=== PATIENT | male | born 1935 | race Caucasian/White ===

== ENCOUNTER 2018-01-06 11:36 | Emergency (ER) | payer MEDICARE, SELFPAY ==
[2018-01-06 11:37] VITALS: BP 148/111; PULSE 99; RESP 18; TEMP 36.6; O2SAT 98; BMI 22.6
[2018-01-06 12:37] LABS: Hematocrit 38.7 % (40-54); Hemoglobin 12.6 g/dl (13.0-16.5); Mean Corp Hgb Conc 32.6 g/gl (32-36); Mean Corpuscular Hgb 30.9 pg (27.0-32.0); Mean Corpuscular Volume 94.9 fL (80-94); Mean Platelet Vol. 9.9 fl (6.2-12.0); Platelet Count 189 K/mm3 (150-450); RBC Distribution Width CV 13.8 % (11.6-14.6); RBC Distribution Width SD 47.7 fl (35.1-43.9); Red Blood Count 4.08 M/mm3 (4.6-6.2); White Blood Count 5.5 K/mm3 (4.4-11.0)
[2018-01-06 12:38] LABS: Scan Indicated on CBC? Y/N NO
[2018-01-06 12:42] LABS: International Normalized Ratio 1.1; Prothrombin Time (Protime)PT. 14.5 SECONDS (11.7-14.9)
[2018-01-06 12:48] LABS: Anion Gap 8 (5-15); BUN 14 mg/dL (7-18); BUN/Creat Ratio 15.1 RATIO (10-20); Calcium,Total 8.7 mg/dL (8.5-10.1); Chloride 106 mmol/L (98-107); Creatinine, Serum 0.93 mg/dL (0.70-1.30); EST Glomerular Filtration Rate 83 mL/min (>60); Est Glom Filt Rate - Afr Amer 101 mL/min (>60); Estimated Creatinine Clearance 62.28 ml/min; Glucose 86 mg/dL (74-106); Sodium Level 142 mmol/L (136-145)
[2018-01-06 13:05] LABS: Mucous, Urine 0 SEEN /hpf (<or=2+)
[2018-01-06 13:07] LABS: Color, Urine Amber (Yellow); Glucose, Dipstick Normal (Normal); Ketone-Dipstick Negative (Negative); Leukocyte Esterase-Dipstick 500 /ul (Negative); Nitrite-Dipstick Positive (Negative); Occult Blood-Urine 250 /ul (Negative); Protein-Dipstick 30 mg/dl (Negative); Urine Bilirubin Dipstick Negative (Negative); Urine Clarity Cloudy (Clear); Urine Urobilinogen Normal (Normal)
[2018-01-06 13:14] LABS: Bacteria 3+ /hpf (None Seen); Red Blood Cells-Urine 25-50 SEEN /hpf (0-5); Squamous Epithelial Cells - UA 0-5 SEEN /hpf (0-5); White Blood Cells 10-25 SEEN /hpf (0-5)
--- NOTE | 2018-01-06 13:32 | ED.VISSUMM ---
- ER Visit Summary Date of Service: 01/06/18 Chief Complaint: Blood in urine History of Present Illness: The patient is a 82 M with an indwelling Barnes catheter which she states was placed for retention. He has noticed blood in the Barnes bag for the past 3 weeks. No back pain or fever. He has noticed occasional small clots. He is on Eliquis. Physical Examination: He is not in distress. No fever. Abdomen is soft. The urine is somewhat blood-tinged in the Barnes bag but there are no clots in it is still flowing well. Test Results: Hemoglobin and creatinine are normal here. He does have blood in his urine and nitrites. Difficult to say if it is just colonization or if this represents an infection but to be safe I did send it for culture and started him on an oral antibiotic. His Barnes bag was changed here and his Barnes is flowing well. There is no evidence of obstruction. No clots. When the bag was changed, the urine was fairly clear. Emergency Department Course and Treatment: No evidence of significant bleeding at this time. Urine was sent for culture and he was started on antibiotic. He will follow up closely with his urologist in [place] and alk with his press manager regarding whether or not he should continue his anticoagulants. Treatment Plan: Follow-up with urology Disposition: Home stable Impression: Initial encounter hematuria, UTI This note was generated with [employer] dictation software. It may contain incorrect words, spelling, and punctuation that were not noted in review of the chart prior to signing ED Disposition - Plan for ED Patient: Chief Complaint: Complaint Instructions: ED UTI Cystitis Male, ED Hematuria Prescriptions: Ciprofloxacin [Cipro] 500 mg PO BID #14 tablet Additional Instructions: Followup with your urologist in [place] as soon as possible
--- NOTE | 2018-01-06 13:53 | NURSING ---
CALLED [facility] FOR TRANSPORT.
[2018-01-06 14:15] VITALS: BP 147/81; PULSE 90; RESP 18; O2SAT 97
[2018-01-06 14:17] VITALS: BP 147/81; PULSE 87; RESP 18; O2SAT 98
--- NOTE | 2018-01-06 14:19 | ED.RN ---
CALLED REPORT TO [facility], SPOKE WITH JUANCHO. UPDATED THEM ON TESTING, CURRENT DX AND NEW MEDICATIONS. DENIES QUESTIONS. GAVE ETA OF 1-1.5 HOURS.
[2018-01-06] MEDS: Ciprofloxacin 500 MG Tablet PO (14:28)
--- NOTE | 2018-01-06 15:04 | NURSING ---
BEDSIDE REPORT GIVEN TO [facility]. PT LEFT ON THEIR COT BACK TO [facility].
== END 2018-01-06 15:05 | disposition home or self-care (01) ==
PROVIDERS: Emergency Provider Emergency Medicine; Family Provider Internal Medicine Nephrology; PCP Internal Medicine Nephrology
DX: N39.0 Urinary tract infection, site not specified (principal); R31.9 Hematuria, unspecified; I10 Essential (primary) hypertension; I48.91 Unspecified atrial fibrillation; N40.0 Benign prostatic hyperplasia without lower urinary tract symptoms; Z79.02 Long term (current) use of antithrombotics/antiplatelets; Z79.82 Long term (current) use of aspirin; Z79.899 Other long term (current) drug therapy
CPT/HCPCS: 80048; 81001; 85027; 85610; 87086; 87088; 87186; 99284; A4216

== ENCOUNTER 2018-05-08 10:21 | Emergency (ER) | payer MEDICARE, SELFPAY ==
[2018-05-08 10:25] VITALS: BP 117/73; PULSE 75; PULSE 77; RESP 18; TEMP 36.7; O2SAT 93; O2SAT 95; BMI 22.8
--- NOTE | 2018-05-08 10:27 | EKG12_ITS ---
Test Reason : SYNCOPE Blood Pressure : / mmHG Vent. Rate : 078 BPM Atrial Rate : 039 BPM P-R Int : 000 ms QRS Dur : 106 ms QT Int : 444 ms P-R-T Axes : 000 007 255 degrees QTc Int : 506 ms Atrial fibrillation with occasional PVCs Incomplete left bundle branch block ST & Marked T wave abnormality, consider anterolateral ischemia ST & T wave abnormality, consider inferior ischemia Prolonged QT Abnormal ECG Confirmed by MIR SMITH, LINDA ([id number]), video effects editor XENA FERGUSON ([id number]) on 05/15/2018 11:17:13 AM Referred By: NATALIE Confirmed By:LINDA HESTER MD
--- NOTE | 2018-05-08 10:27 | RAD_ITS ---
STUDY: X-RAY CHEST REASON FOR EXAM: Male, 82 years old. Chest pain TECHNIQUE: Portable upright chest COMPARISON: None. FINDINGS: Left pectoral AICD device. Median sternotomy. Pulmonary hyperinflation and hyperlucency with diffuse mild coarsening of interstitium and flattening of hemidiaphragms consistent with COPD/emphysema. The lungs are acutely clear. No infiltrate, effusion or pneumothorax. Borderline cardiomegaly. Normal mediastinal silhouette, satnam and pleural margins. No acute osseous or upper abdominal process. 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 Electronically Signed: Loy Escamilla MD at 13:03 EST Tel , Service support ,
--- NOTE | 2018-05-08 10:41 | ED.DCSUM_ITS ---
- ER Visit Summary Date of Service: 05/08/18 Chief Complaint: Syncope History of Present Illness: The patient is a 82 M who has a pacemaker developed a syncopal episode earlier today. Patient denies chest pain shortness of breath fever or chills. He was in his wheelchair at the [facility], this was observed was described as a brief loss of consciousness with rapid full recovery, he slid out of wheelchair and did not sustain significant injury. Denies a headache. No neck pain. Physical Examination: Not appear in acute distress. He is lying comfortably on a stretcher Slightly dry mucous membranes, no obvious facial deformity No C-spine tenderness supple neck. Regular rate and rhythm without any obvious murmurs. Pacemaker noted on the left side of the chest Course lungs bilaterally speaking in full sentences without any obvious respiratory distress Abdomen soft and nontender no guarding or rebound Moves all extremities without any difficulty or pain. Skin does not show any obvious rashes or lesions, no trauma. Alert oriented ?3 with no gross focal deficit Emergency Department Course and Treatment: He had an unremarkable workup. His interrogation of the pacer does not show any ventricular events, his battery is working normally. I am unsure about the etiology of this syncope, however he has no PE risk factors, he has no cardiac abnormalities on pacemaker interrogation, I believe he is safe for discharge back to the longterm. Disposition: Discharge stable condition Impression: Syncope This note was generated with [employer] dictation software. It may contain incorrect words, spelling, and punctuation that were not noted in review of the chart prior to signing ED Disposition - Plan for ED Patient: Chief Complaint: Syncope Referrals: Cristina Cruz NP-C [Primary Care Provider] -
--- NOTE | 2018-05-08 10:41 | NURSING ---
NO OLD EKGS
[2018-05-08] MEDS: Aspirin 81 MG TAB.CHEW 324 MG PO (10:45)
[2018-05-08 11:01] VITALS: O2SAT 100
[2018-05-08 11:20] LABS: Absolute Lymphocyte Count 0.39 X10^3/ul (0.83-4.51); Absolute Neutrophil Count 3.1 X10^3/uL (2.0-7.7); Basophil# 0.01 X10^3/uL; Basophil% 0.3 % (0-1); Differential Indicated SCAN CRITERIA MET; Eosinophil# 0.01 X10^3/uL; Eosinophils% 0.3 % (0-5); Hematocrit 40.8 % (40-54); Hemoglobin 13.9 g/dl (13.0-16.5); Lymphocyte # 0.39 X10^3/ul (4.0); Lymphocyte % 10.2 % (19-41); Mean Corp Hgb Conc 34.1 g/gl (32-36); Mean Corpuscular Hgb 31.9 pg (27.0-32.0); Mean Corpuscular Volume 93.6 fL (80-94); Mean Platelet Vol. 10.2 fl (6.2-12.0); Monocyte# 0.32 X10^3/uL; Monocyte% 8.4 % (0-10); Neutrophil # 3.08 X10^3/uL (2.7-7.7); Neutrophil % 80.8 % (47-70); POSITIVE COUNT NO; POSITIVE DIFFERENTIAL YES; POSITIVE MORPHOLOGY NO; Platelet Count 128 K/mm3 (150-450); RBC Distribution Width CV 14.2 % (11.6-14.6); Red Blood Count 4.36 M/mm3 (4.6-6.2); White Blood Count 3.8 K/mm3 (4.4-11.0)
[2018-05-08 11:24] LABS: International Normalized Ratio 2.9; Prothrombin Time (Protime)PT. 30.4 SECONDS (11.7-14.9)
[2018-05-08 11:31] LABS: Anion Gap 7 (5-15); BUN 18 mg/dL (7-18); BUN/Creat Ratio 16.2 RATIO (10-20); Calcium,Total 8.2 mg/dL (8.5-10.1); Chloride 105 mmol/L (98-107); Creatinine, Serum 1.11 mg/dL (0.70-1.30); EST Glomerular Filtration Rate 68 mL/min (>60); Est Glom Filt Rate - Afr Amer 82 mL/min (>60); Estimated Creatinine Clearance 51.08 ml/min; Glucose 104 mg/dL (74-106); Potassium 4.1 mmol/L (3.5-5.1); Sodium Level 139 mmol/L (136-145)
--- NOTE | 2018-05-08 12:26 | ED.DEP ---
ED Disposition - Plan for ED Patient: Chief Complaint: Syncope Instructions: ED Fainting Unkn Cause Referrals: Cristina Cruz, [employer] INST[employer]ER-C [Primary Care Provider] - 3-5 Days
--- NOTE | 2018-05-08 12:26 | DCINST.ED_ITS ---
ED Disposition - Plan for ED Patient: Chief Complaint: Syncope Instructions: ED Fainting Unkn Cause Referrals: Cristina Cruz, SUPERINTENDENT [employer] HATCHERY-C [Primary Care Provider] - 3-5 Days
--- NOTE | 2018-05-08 13:00 | ED.RN ---
[facility] CONTA[facility] FOR [facility]SPORTATION
[2018-05-08 13:16] VITALS: BP 128/82; PULSE 72; RESP 18
--- NOTE | 2018-05-08 13:17 | ED.RN ---
REPORT CALLED TO [facility]ER[facility]
[2018-05-08 13:31] VITALS: BP 133/71; PULSE 77; RESP 18
[2018-05-09 13:38] LABS: Pathologist Review Reviewed
== END 2018-05-08 13:32 | disposition home or self-care (01) ==
LOC: ED 10:51
PROVIDERS: Emergency Provider Emergency Medicine
DX: R55 Syncope and collapse (principal); Z95.0 Presence of cardiac pacemaker
CPT/HCPCS: 71045; 80048; 84484; 85025; 85610; 93005; 99285; A4216